=== PATIENT | female | born 1970 | race Caucasian/White ===

== ENCOUNTER 2019-03-03 10:49 | Emergency (ER) | payer MEDICAID ==
[~2019-03-03] VITALS: Ht 165.1 cm; Wt 95.0 kg
[2019-03-03 11:52] VITALS: BP 125/67
[2019-03-03] MEDS ORDERED: METF-960 PO (11:56)
[2019-03-03] MEDS ORDERED: GLIP10 PO (11:56)
[2019-03-03] MEDS ORDERED: ACETAMINOPHEN 500 MG TABLET PO ONE (12:00)
[2019-03-03 13:15] LABS: GLUCOSE,POINT OF CARE 133 MG/DL (70-110)
== END 2019-03-03 13:01 | disposition home or self-care (01) ==
LOC: EMS 10:53
DX: J11.1 Influenza due to unidentified influenza virus with other respiratory manifestations (principal); E11.9 Type 2 diabetes mellitus without complications; E78.00 Pure hypercholesterolemia, unspecified; Z79.84 Long term (current) use of oral hypoglycemic drugs
CPT/HCPCS: 82948